=== PATIENT | male | born 1985 | race Hispanic/Latino ===

== ENCOUNTER 2024-06-10 04:38 | Emergency (ER) | payer SELFPAY ==
[2024-06-10 05:13] LABS: #Basophils 0.07 10x3/uL (0.0-0.2); %Basophils 0.7 % (0.0-1.0); %Eosinophils 0.9 % (0.0-10.0); %Lymphocytes 21.6 % (21.0-51.0); %Monocytes 5.6 % (0.0-10.0); %Neutrophils 70.8 % (42.0-75.0); Hematocrit 44.6 % (42.0-52.0); Hemoglobin 14.9 g/dL (14.0-18.0); Mean Corpuscular HGB CONC 33.4 g/dL (32.0-36.0); Mean Corpuscular Volume 86.8 fL (78.0-98.0); Mean Platelet Volume 10.1 fL (7.4-10.4); Platelet Count 258 10x3/uL (130-400); RBC Distribution Width 12.8 % (11.5-14.5); Red Blood Cell (RBC) Count 5.14 mill/uL (4.70-6.10)
[2024-06-10] MEDS ORDERED: Ketorolac Tromethamine 30 MG (1 mL) VIAL ONE (05:17)
[2024-06-10 05:38] LABS: ALT (SGPT) 40 U/L (8-55); AST (SGOT) 24 U/L (5-34); Albumin 4.1 g/dL (3.5-5.0); Alkaline Phosphatase 86 U/L (40-110); Anion Gap 13 mmol/L (10-20); BUN (Urea Nitrogen) 14 mg/dL (8.9-20.6); Bilirubin, Total 0.4 mg/dL (0.2-1.2); Calc. Creatinine Clearance 0 mL/min (70-130); Calcium 9.2 mg/dL (7.8-10.44); Carbon Dioxide 26 mmol/L (22-29); Chloride 105 mmol/L (98-107); Estimated GFR 114; Globulin 3.3 g/dL (2.4-3.5); Glucose 171 mg/dL (70-105); Lipase 9 U/L (8-78); Potassium 3.7 mmol/L (3.5-5.1); Protein, Total 7.4 g/dL (6.0-8.3); Sodium 140 mmol/L (136-145)
[2024-06-10] MEDS ORDERED: Morphine 4 MG/ML VIAL ONE (05:45)
[2024-06-10] MEDS ORDERED: Ondansetron PF 4 MG/2 ML Vial ONE (05:46)
[2024-06-10] MEDS ORDERED: Famotidine/PF 20 mg/2ml Vial ONE (05:49)
[2024-06-10 06:48] LABS: Troponin I Less than 0.010 ng/mL (< 0.028)
== END 2024-06-10 07:04 | disposition home or self-care (01) ==
LOC: ERS 04:38
DX: K80.20 Calculus of gallbladder without cholecystitis without obstruction (principal); E78.00 Pure hypercholesterolemia, unspecified; F17.210 Nicotine dependence, cigarettes, uncomplicated
CPT/HCPCS: 36415; 76705; 80053; 83690; 84484; 85025; 93005; 96374; 96375; J1885; J2272; J2405; J3490

== ENCOUNTER 2025-03-22 14:55 | Emergency (ER) | payer OTHER, SELFPAY ==
[~2025-03-22 14:55] MED LIST: Iopamidol-370 76% 500 ML MDV (1 ML CHARGE) ONE
[2025-03-22 16:00] LABS: #Basophils 0.06 10x3/uL (0.0-0.2); #Eosinophils 0.06 10x3/uL (0.0-0.7); #Monocytes 0.56 10x3/uL (0.11-0.59); #Neutrophils 7.58 10x3/uL (1.40-6.50); %Basophils 0.6 % (0.0-1.0); %Eosinophils 0.6 % (0.0-10.0); %Lymphocytes 13.8 % (21.0-51.0); %Monocytes 5.8 % (0.0-10.0); %Neutrophils 78.5 % (42.0-75.0); Hematocrit 43.5 % (42.0-52.0); Hemoglobin 14.3 g/dL (14.0-18.0); Mean Corpuscular Hemoglobin 28.1 pg (27.0-31.0); Mean Corpuscular Volume 85.6 fL (78.0-98.0); Platelet Count 239 10x3/uL (130-400); Red Blood Cell (RBC) Count 5.08 mill/uL (4.70-6.10); White Blood Cell (WBC) Count 9.66 10x3/uL (4.8-10.8)
[2025-03-22 16:19] LABS: ALT (SGPT) 29 U/L (Less than 45); AST (SGOT) 22 U/L (11-34); Albumin 4.2 g/dL (3.1-4.5); Alkaline Phosphatase 83 U/L (40-110); Anion Gap 13 mmol/L (10-20); BUN (Urea Nitrogen) 16 mg/dL (8.9-20.6); Bilirubin, Total 0.3 mg/dL (0.3-1.2); Calc. Creatinine Clearance 0 mL/min (70-130); Calcium 8.8 mg/dL (7.8-10.44); Carbon Dioxide 22 mmol/L (22-29); Chloride 107 mmol/L (98-107); Globulin 3.1 g/dL (2.4-3.5); Glucose 118 mg/dL (70-105); Lipase 9 U/L (8-78); Potassium 3.2 mmol/L (3.5-5.1); Sodium 139 mmol/L (136-145)
== END 2025-03-22 17:45 | disposition home or self-care (01) ==
LOC: ERS 14:55
DX: S10.93XA Contusion of unspecified part of neck, initial encounter (principal); R07.9 Chest pain, unspecified; F17.210 Nicotine dependence, cigarettes, uncomplicated; Z55.6 Problems related to health literacy; V53.5XXA Driver of pick-up truck or van injured in collision with car, pick-up truck or van in traffic accident, initial encounter
CPT/HCPCS: 70450; 70498; 71045; 71260; 72125; 74177; 80053; 83690; 85025; 93005; 96374; G0390; J3010